=== PATIENT | male | born 1965 | race Caucasian/White ===

== ENCOUNTER 2017-09-16 15:11 | Observation (INO) | payer SELFPAY ==
[~2017-09-16] VITALS: Ht 175.3 cm; Wt 76.0 kg
[2017-09-16] MEDS ORDERED: ASPIRIN 325 MG TAB PO ONE (15:15)
[2017-09-16] MEDS ORDERED: SODIUM CHLORIDE 0.9% FLUSH 10 ML FLUSH IVF PRN (15:15)
[2017-09-16 15:16] VITALS: BP 175/90; PULSE 102; RESP 18; O2SAT 96
[2017-09-16 15:22] VITALS: BP 135/81; PULSE 97; RESP 16; O2SAT 96
[2017-09-16] MEDS ORDERED: MORPHINE SULFATE 4 MG/ML INJ IV PUSH ONE (15:30)
--- NOTE | 2017-09-16 15:35 | PD ---
HPI Chief Complaint: Chest Pain Time Seen by Provider: 15:16 Travel History International Travel<30 days: No Contact w/Intl Traveler<30days: No Traveled to known affect area: No History of Present Illness HPI 51-year-old male with PMH of CAD, S/P quadruple bypass and stenting presents the ED for evaluation of 10/10 stabbing chest and left upper quadrant abdominal pain. Onset 4 days ago. No alleviating or exacerbating factors reported. Patient reports similar pain for "about a month." He endorses associated nausea , diaphoresis. He denies palpitations or shortness of breath. He endorses occasional alcohol use. He endorses heavy cocaine use "4 days ago because I was in so much pain." He has been noncompliant with medications for about a month. He does not currently have a shelter case manager. He is a current smoker. PFSH Past Medical History Cardiovascular Problems: Yes High Cholesterol: Yes COPD: Yes GERD: Yes Hypertension: Yes Myocardial Infarction: Yes Tetanus Vaccination: Unknown Past Surgical History Appendectomy: Yes Coronary Artery Bypass Graft: Yes Coronary Stent: Yes Tonsillectomy: Yes Social History Alcohol Use: Yes Tobacco Use: Yes Substance Use: No Allergies-Medications (Allergen,Severity, Reaction): Coded Allergies: No Known Allergies (Unverified , 09/16/17) Review of Systems Except as stated in HPI: all other systems reviewed are Neg Physical Exam Narrative GENERAL: Anxious white male in no acute distress. SKIN: Focused skin assessment warm/dry. Deeply tanned. Multiple tattoos noted. HEAD: Atraumatic. Normocephalic. EYES: Pupils equal and round. No scleral icterus. No injection or drainage. ENT: No nasal bleeding or discharge. Mucous membranes pink and moist. NECK: Trachea midline. No JVD. CARDIOVASCULAR: Regular rate and rhythm. No murmur appreciated. RESPIRATORY: No accessory muscle use. Clear to auscultation. Breath sounds equal bilaterally. GASTROINTESTINAL: Abdomen soft, nondistended. Hepatic and splenic margins not palpable. Tender to palpation in the left upper quadrant. MUSCULOSKELETAL: No obvious deformities. No clubbing. No cyanosis. No edema. NEUROLOGICAL: Awake and alert. No obvious cranial nerve deficits. Motor grossly within normal limits. Normal speech. PSYCHIATRIC: Appropriate mood and affect; insight and judgment normal. Data Data Last Documented VS Vital Signs Date Time Temp Pulse Resp B/P (MAP) Pulse Ox O2 Delivery O2 Flow Rate FiO2 09/16/17 18:59 18 09/16/17 15:23 96 09/16/17 15:22 97 135/81 (99) Room Air Orders Orders Electrocardiogram (09/16/17 15:15) Ckmb (Isoenzyme) Profile (09/16/17 15:15) Complete Blood Count With Diff (09/16/17 15:15) Comprehensive Metabolic Panel (09/16/17 15:15) Magnesium (Mg) (09/16/17 15:15) Prothrombin Time / Inr (Pt) (09/16/17 15:15) Act Partial Throm Time (Ptt) (09/16/17 15:15) Troponin I (09/16/17 15:15) Ecg Monitoring (09/16/17 15:15) Bilateral Bp Monitoring (09/16/17 15:15) Iv Access Insert/Monitor (09/16/17 15:15) Oximetry (09/16/17 15:15) Oxygen Administration (09/16/17 15:15) Sodium Chloride 0.9% Flush (Ns Flush) (09/16/17 15:15) Chest, Pa & Lat (09/16/17 15:15) Drug Screen, Random Urine (09/16/17 15:15) Alcohol (Ethanol) (09/16/17 15:15) Aspirin (Aspirin) (09/16/17 15:15) Urinalysis - C+S If Indicated (09/16/17 15:21) Morphine Inj (Morphine Inj) (09/16/17 15:30) Lipase (09/16/17 15:15) CKMB (09/16/17 15:25) CKMB% (09/16/17 15:25) Ct Abd/Pel W Iv Contrast(Rout) (09/16/17 17:44) Ketorolac Inj (Toradol Inj) (09/16/17 18:00) Iohexol 350 Inj (Omnipaque 350 Inj) (09/16/17 18:19) Admit Order (Ed Use Only) (09/16/17 19:01) Place In Observation (09/16/17 19:01) Activity Bed Rest With Brp (09/16/17 19:01) Vital Signs (Adult) Q4H (09/16/17 19:01) Cardiac Rhythm .As Directed (09/16/17 19:) Notify Dr: Other .PRN (09/16/17:) Notify Dr. Parameters (09/16/17) Resp Oxygen Nasal Cannula (09/16/17 ) Diet Heart Healthy (09/17/17 Breakfast) Ckmb (Isoenzyme) Profile (09/16/17:) Ckmb (Isoenzyme) Profile (09/16/17:) Troponin I (09/16/17:) Troponin I (09/16/17:) Electrocardiogram (09/16/17:) Electrocardiogram (09/16/17:) ^ Obtain (09/16/17:) Sodium Chloride 0.9% Flush (Ns Flush) (09/16/17 19:15) Sodium Chloride 0.9% Flush (Ns Flush) (09/16/17 21:00) Medical Policy Specialist / Telemetry [id number].[id number] (09/16/17:) Labs Laboratory Tests Test 09/16/17 15:25 09/16/17 17:40 White Blood Count 9.1 TH/MM3 Red Blood Count 4.71 MIL/MM3 Hemoglobin 14.4 GM/DL Hematocrit 42.3 % Mean Corpuscular Volume 89.9 FL Mean Corpuscular Hemoglobin 30.6 PG Mean Corpuscular Hemoglobin Concent 34.1 % Red Cell Distribution Width 13.8 % Platelet Count 230 TH/MM3 Mean Platelet Volume 9.5 FL Neutrophils (%) (Auto) 61.6 % Lymphocytes (%) (Auto) 28.6 % Monocytes (%) (Auto) 5.7 % Eosinophils (%) (Auto) 3.4 % Basophils (%) (Auto) 0.7 % Neutrophils # (Auto) 5.6 TH/MM3 Lymphocytes # (Auto) 2.6 TH/MM3 Monocytes # (Auto) 0.5 TH/MM3 Eosinophils # (Auto) 0.3 TH/MM3 Basophils # (Auto) 0.1 TH/MM3 CBC Comment DIFF FINAL Differential Comment Prothrombin Time 10.0 SEC Prothromb Time International Ratio 1.0 RATIO Activated Partial Thromboplast Time 26.9 SEC Blood Urea Nitrogen 12 MG/DL Creatinine 1.24 MG/DL Random Glucose 118 MG/DL Total Protein 7.3 GM/DL Albumin 3.6 GM/DL Calcium Level 8.0 MG/DL Magnesium Level 2.2 MG/DL Alkaline Phosphatase 96 U/L Aspartate Amino Transf (AST/SGOT) 29 U/L Alanine Aminotransferase (ALT/SGPT) 28 U/L Total Bilirubin 0.3 MG/DL Sodium Level 140 MEQ/L Potassium Level 4.0 MEQ/L Chloride Level 105 MEQ/L Carbon Dioxide Level 27.5 MEQ/L Anion Gap 8 MEQ/L Estimat Glomerular Filtration Rate 61 ML/MIN Total Creatine Kinase 201 U/L Creatine Kinase MB 2.5 NG/ML Troponin I LESS THAN 0.02 NG/ML Lipase 168 U/L Ethyl Alcohol Level LESS THAN 3 MG/DL Urine Color YELLOW Urine Turbidity HAZY Urine pH 7.5 Urine Specific [place] 1.019 Urine Protein NEG mg/dL Urine Glucose (UA) NEG mg/dL Urine Ketones NEG mg/dL Urine Occult Blood NEG Urine Nitrite NEG Urine Bilirubin NEG Urine Urobilinogen LESS THAN 2.0 MG/DL Urine Leukocyte Esterase NEG Urine WBC 1 /hpf Microscopic Urinalysis Comment CULT NOT INDICATED MDM Medical Decision Making Medical Screen Exam Complete: Yes Emergency Medical Condition: Yes Differential Diagnosis Chest pain versus angina versus ACS versus pancreatitis versus other Narrative Course 51-year-old male with PMH of CAD, S/P quadruple bypass and stenting presents the ED for evaluation of 10/10 stabbing chest and left upper quadrant abdominal pain. Onset 4 days ago. He endorses associated nausea, diaphoresis. He endorses heavy cocaine use 4 days ago. He has been noncompliant with medications for about a month. He does not currently have a shelter case manager. He is a current smoker. Vitals reviewed. Patient is tachycardic on arrival, resolves in the exam room. No appreciable M/R/G. TTP in the LUQ and flank. The patient was administered aspirin, IV is established. EKG rate 100, sinus tachycardia. OK interval 122, QRS 93, QTC 397 ms. Normal axis. No acute ST changes. Q waves in lead II and III, probably old. Reviewed by Dr. Alston. CXR: Negative for radiology read. Cardiac enzymes negative 1. CBC: No leukocytosis or anemia. CMP BUN 12, creatinine 1.24. Calcium 8.0, replaced orally. Lipase 124. Drug screen pending Patient states that he was seen at [facility] about a month ago, but left AMA. Unsure of last cardiac evaluation. I discussed the results of the workup with the patient. Given his significant cardiac history as will admit to the chest pain center. Patient's agreeable to this plan. Please see chest pain center notes for disposition. Diagnosis Primary Impression: Chest pain Veronica Payan Sep 16, 2017 15:35
[2017-09-16 15:43] LABS: AUTOMATED NEUTROPHIL # 5.6 TH/MM3 (1.8-7.7); BASOPHIL # 0.1 TH/MM3 (0-0.2); BASOPHIL % 0.7 % (0.0-2.0); EOSINOPHIL # 0.3 TH/MM3 (0-0.4); EOSINOPHIL % 3.4 % (0.0-4.0); HEMATOCRIT 42.3 % (39.0-51.0); HEMOGLOBIN 14.4 GM/DL (13.0-17.0); LYMPH % 28.6 % (9.0-44.0); LYMPHOCYTE # 2.6 TH/MM3 (1.0-4.8); MEAN CELL VOLUME 89.9 FL (80.0-100.0); MEAN CORPUSCULAR HEMOGLOBIN 30.6 PG (27.0-34.0); MEAN CORPUSCULAR HGB CONC 34.1 % (32.0-36.0); MEAN PLATELET VOLUME 9.5 FL (7.0-11.0); MONO % 5.7 % (0.0-8.0); MONOCYTE # 0.5 TH/MM3 (0-0.9); NEUT % 61.6 % (16.0-70.0); PLATELET COUNT 230 TH/MM3 (150-450); RED BLOOD COUNT 4.71 MIL/MM3 (4.50-5.90); RED CELL DISTRIBUTION WIDTH 13.8 % (11.6-17.2); WHITE BLOOD COUNT 9.1 TH/MM3 (4.0-11.0)
--- NOTE | 2017-09-16 15:52 | RADRPT ---
EXAM DATE: 09/16/2017 3:45 PM EDT AGE/SEX: 51 years / Male INDICATIONS: Anterior and left side chest pain, denies injury CLINICAL DATA: This is the patient's initial encounter. Patient reports that signs and symptoms have been present for 3 weeks and indicates a pain score of 10/10. MEDICAL/SURGICAL HISTORY: Cardiovascular disease. CABG. COMPARISON: No prior exams available for comparison. FINDINGS: PA and lateral views of the chest demonstrate the lungs to be symmetrically aerated without evidence of mass, infiltrate or effusion. The cardiomediastinal contours are unremarkable. Osseous structures are intact. Median sternotomy wires. CONCLUSION: Negative examination. Electronically signed by: Mat Dodge MD 09/16/2017 3:50 PM EDT
[2017-09-16 16:33] LABS: ALBUMIN 3.6 GM/DL (3.4-5.0); ALKALINE PHOSPHATASE 96 U/L (45-117); ALT (GPT) 28 U/L (12-78); AST (GOT) 29 U/L (15-37); BICARBONATE 27.5 MEQ/L (21.0-32.0); BLOOD UREA NITROGEN 12 MG/DL (7-18); CHLORIDE 105 MEQ/L (98-107); CREATININE 1.24 MG/DL (0.60-1.30); GLOMERULAR FILTRATION RATE 61 ML/MIN (>89); GLUCOSE,RANDOM 118 MG/DL (74-106); MAGNESIUM 2.2 MG/DL (1.5-2.5); SODIUM (NA) 140 MEQ/L (136-145); TOTAL BILIRUBIN ADULT 0.3 MG/DL (0.2-1.0); TOTAL PROTEIN 7.3 GM/DL (6.4-8.2); TROPONIN I LESS THAN 0.02 NG/ML (0.02-0.05)
[2017-09-16] MEDS ORDERED: KETOROLAC TROMETHAMINE 30 MG/ML (IVP) VIAL IV PUSH ONE (18:00)
[2017-09-16 18:07] LABS: BILIRUBIN, URINE NEG (NEG); BLOOD, URINE NEG (NEG); GLUCOSE,URINE NEG (NEG); KETONE, URINE NEG (NEG); NITRITE,URINE NEG (NEG); PH, URINE 7.5 (5.0-8.5); URINE COLOR YELLOW (YELLW/STRAW); URINE LEUKOCYTE ESTERASE NEG (NEG)
[2017-09-16] MEDS ORDERED: IOHEXOL 350 MG/ML 10 ML VIAL (for RAD DIAG) IVCONTRAST ONE (18:19)
--- NOTE | 2017-09-16 18:34 | RADRPT ---
EXAM DATE: 09/16/2017 6:20 PM EDT AGE/SEX: 51 years / Male INDICATIONS: Left upper quadrant pain. CLINICAL DATA: This is the patient's initial encounter. Patient reports that signs and symptoms have been present for 1 day and indicates a pain score of 8/10. MEDICAL/SURGICAL HISTORY: Cardiovascular disease. Hypertension. Chronic obstructive pulmonary disease. GERD Appendectomy. ORAL CONTRAST: No oral contrast ingested. RADIATION DOSE: 9.96 CTDI (mGy) COMPARISON: No prior exams available for comparison. TECHNIQUE: Multiple contiguous axial images were obtained through the abdomen and pelvis following b olus infusion of 95 ml Omnipaque 350 (iohexol) nonionic water-soluble contrast as a single exam dos e. No oral contrast ingested. Using automated exposure control and adjustment of the mA and/or kV ac cording to patient size, the radiation dose was kept as low as reasonably achievable to obtain optima l diagnostic quality images. FINDINGS: Abdomen CT: The spleen, pancreas, left kidney adrenals are unremarkable. Approximate 1.1 cm simple cyst is presen t in the right kidney. There is no evidence for any appreciable pathological adenopathy, free fluid, or bowel obstruction. There are atherosclerotic calcifications involving the aorta and iliac arteries chronic in nature. There is a questionable tiny subcentimeter cyst in the hepatic dome anteriorly. Pelvic CT: There is no evidence for mass, abscess formation, or any significant adenopathy within the pelvis. T here is vague sclerosis of bilateral iliac bones near the SI joint chronic and benign in nature may b e due to chronic sacroiliitis. There is prominent fat within bilateral inguinal canals without eviden ce for bowel herniation. CONCLUSION: There is a small right renal cyst questionable hepatic cyst and chronic changes of the SI joints. Electronically signed by: Mauri Faustin MD 09/16/2017 6:33 PM EDT
[2017-09-16] MEDS ORDERED: SODIUM CHLORIDE 0.9% FLUSH 10 ML FLUSH IV FLUSH PRN (19:15)
[2017-09-16 19:29] VITALS: BP 127/76; PULSE 83; RESP 16; O2SAT 98
--- NOTE | 2017-09-16 19:33 | EKG ---
Date Performed: 09/16/2017 Time Performed: 14:19:41 PTAGE: 51 years EKG: SINUS TACHYCARDIA POSSIBLE INFERIOR MYOCARDIAL INFARCTION ABNORMAL RHYTHM ECG NO PREVIOUS TRACING DOCTOR: Uli Rubio Interpretating Date/Time 09/16/2017 19:33:19
[2017-09-16] MEDS ORDERED: CALCIUM CARBONATE 500 MG CHEWABLE TAB CHEW ONE (19:45)
[2017-09-16 20:03] VITALS: BP 131/74; PULSE 73; RESP 16; TEMP 97.4; O2SAT 97
[2017-09-16 20:09] LABS: TROPONIN I LESS THAN 0.02 NG/ML (0.02-0.05)
[2017-09-16] MEDS: SODIUM CHLORIDE 0.9% FLUSH 10 ML FLUSH IV FLUSH SCH (21:00)
--- NOTE | 2017-09-16 21:38 | EKG ---
Date Performed: 09/16/2017 Time Performed: 18:21:06 PTAGE: 51 years EKG: Sinus rhythm NORMAL ECG Compared to prior electrocardiogram, rate has decreased PREVIOUS TRACING : 09/16/2017 14.19 DOCTOR: Uli Rubio Interpretating Date/Time 09/16/2017 21:37:38
[2017-09-16 23:46] LABS: TROPONIN I LESS THAN 0.02 NG/ML (0.02-0.05)
[2017-09-17 00:13] VITALS: BP 121/67; PULSE 77; RESP 16; TEMP 98.1; O2SAT 97
[2017-09-17 00:24] VITALS: PULSE 55
[2017-09-17 04:41] VITALS: BP 134/77; PULSE 70; RESP 16; TEMP 97.5; O2SAT 97
[2017-09-17] MEDS ORDERED: MORPHINE SULFATE 4 MG/ML INJ IV SCH (05:15)
[2017-09-17 07:31] VITALS: PULSE 60
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
[2017-09-17 07:54] VITALS: BP 135/85; PULSE 60; RESP 18; TEMP 97.6; O2SAT 100
[2017-09-17] MEDS: SODIUM CHLORIDE 0.9% FLUSH 10 ML FLUSH IV FLUSH SCH (07:59)
[2017-09-17] MEDS ORDERED: ACETAMINOPHEN 500 MG CPLT PO PRN (08:30)
[2017-09-17] MEDS ORDERED: NITROGLYCERIN 0.4 MG SL 25 TABS/BTL SL PRN (08:30)
[2017-09-17 08:43] VITALS: O2SAT 98
[2017-09-17] MEDS ORDERED: ASPIRIN 325 MG TAB PO SCH (09:00)
--- NOTE | 2017-09-17 10:21 | HHI.DCPOC ---
Discharge Care Plan Diagnosis: (1) Atypical chest pain (2) Tobacco abuse (3) Substance abuse (4) Situational stress (5) Hx of coronary artery disease Goals to Promote Your Health * To prevent worsening of your condition and complications * To maintain your health at the optimal level Directions to Meet Your Goals Take your medications as prescribed Follow your dietary instruction Follow activity as directed Keep your appointments as scheduled Take your immunizations and boosters as scheduled If your symptoms worsen call your PCP, if no PCP go to Urgent Care Center or Emergency Room Smoking is Dangerous to Your Health. Avoid second hand smoke Call the 24-hour hour crisis hotline for domestic abuse at Crystal Earl Sep 17, 2017 10:21
[2017-09-17] MEDS ORDERED: METO25TA3 PO (10:38)
[2017-09-17] MEDS ORDERED: ASPI1TAB57 PO (10:38)
[2017-09-17] MEDS ORDERED: XANA1TAB2 PO (10:38)
[2017-09-17] MEDS ORDERED: OMEP40CA2 PO (10:38)
[2017-09-17] MEDS ORDERED: NITR0.4S SL (10:38)
--- NOTE | 2017-09-17 18:32 | TR ---
Date Performed: 09/17/2017 Time Performed: 09:37:41 DOCTOR: Kate Taylor DRUG LIST: CLINICAL HISTORY: CHEST PAIN REASON FOR TEST: REASON FOR ENDING: OBSERVATION: CONCLUSION: Kole protocol completed. Stopped sec to reaching target heart rate and leg fatigue. Maximum GR=230 Target HR Wyeciqms=580.0% Maximum LK=806/78 Total Exercise Time=7:41. No reprod chest discomfort. Normal bp response. No ectopy. No st t segment changes. Good exercise tolerance. Recover y quick and unremarkable. COMMENTS: No ischemia
--- NOTE | 2017-09-17 18:33 | EKG ---
Date Performed: 09/16/2017 Time Performed: 22:57:48 PTAGE: 51 years EKG: SINUS BRADYCARDIA BORDERLINE ECG Since PREVIOUS TRACING , no significant change noted PREVIOUS TRACIN09/16/2017 18.21 DOCTOR: Kate Taylor Interpretating Date/Time 09/17/2017 18:31:59
== END 2017-09-17 11:46 | disposition home or self-care (01) ==
LOC: NEPE 15:11 → NEDH 19:06 → NEPFCDU 19:51
PROVIDERS: ADMIT Internal Medicine Cardiovascular Disease; ATTEND Internal Medicine Cardiovascular Disease
DX: R07.89 Other chest pain (principal); R00.1 Bradycardia, unspecified; R00.0 Tachycardia, unspecified; R10.32 Left lower quadrant pain; R10.12 Left upper quadrant pain; R11.0 Nausea; R61 Generalized hyperhidrosis; I25.10 Atherosclerotic heart disease of native coronary artery without angina pectoris; I10 Essential (primary) hypertension; E78.00 Pure hypercholesterolemia, unspecified; K21.9 Gastro-esophageal reflux disease without esophagitis; I25.2 Old myocardial infarction; J44.9 Chronic obstructive pulmonary disease, unspecified; F14.90 Cocaine use, unspecified, uncomplicated; F17.210 Nicotine dependence, cigarettes, uncomplicated; Z95.1 Presence of aortocoronary bypass graft; Z91.14 Patient's other noncompliance with medication regimen
CPT/HCPCS: 71046; 74177; 80053; 80307; 81001; 82550; 82552; 83690; 83735; 84484; 85025; 85610; 85730; 93005; 93017; 96374; 96375; 99285; G0378; J1885; J2270; Q9967